=== PATIENT | female | born 1960 | race African-American/Black ===

== ENCOUNTER 2021-03-07 20:33 | Emergency (ER) | payer MEDICARE ==
[~2021-03-07] VITALS: Ht 177.8 cm; Wt 82.7 kg
--- NOTE | 2021-03-07 23:52 | PHYS DOC ---
General Adult EDM: Chief Complaint: COLD EXPOSURE HPI: HPI: Patient is a 60 year old 60-year-old female patient presented to the ED today to be evaluated for Covid exposure. Patient states she was out in the cold for 2 days. Patient states she was seen at [facility] today and her skin to the hands was dry and bleeding and was sent to the ED. Review of Systems: Review of Systems: Constitutional: Denies fever or chills. [] Musculoskeletal: Denies back pain or joint pain. [] Integument: Reports cold exposure with dry bleeding hands Neurologic: Denies headache, focal weakness or sensory changes. [] Psychiatric: Denies depression or anxiety. [] Heart Score: C/O Chest Pain: N/A Risk Factors: Risk Factors: DM, Current or recent (<one month) smoker, HTN, HLP, family history of CAD, obesity. Risk Scores: Score 0 - 3: 2.5% MACE over next 6 weeks - Discharge Home Score 4 - 6: 20.3% MACE over next 6 weeks - Admit for Clinical Observation Score 7 - 10: 72.7% MACE over next 6 weeks - Early Invasive Strategies Physical Exam: PE: Constitutional: Well developed, well nourished, no acute distress, non-toxic appearance. [] Skin: Bilateral hands with very dry skin, left middle finger nailbed is scaly and has trace amount of dried blood, both hands and fingers are warm. Patient is dressed warm. Cap refill to both fingers are<2. +2 bilateral radial pulses. Adequate radial, medial, ulnar sensation to bilateral fingers. Back: No tenderness, no CVA tenderness. [] Extremities: No tenderness, no cyanosis, no clubbing, ROM intact, no edema. [] Neurologic: Alert and oriented X 3, normal motor function, normal sensory function, no focal deficits noted. [] Psychologic: Affect normal, judgement normal, mood normal. [] Current Patient Data: Labs: Laboratory Tests Test 03/07/21 23:30 POC Urine HCG, Qualitative Hcg negative (Negative) EKG: EKG: [] Radiology/Procedures: Radiology/Procedures: [] Course & Med Decision Making: Course & Med Decision Making Pertinent Labs and Imaging studies reviewed. (See chart for details) This is a 60-year-old female patient presenting to the ED today with cold exposure and bilateral hands and fingers dry and bleeding. Patient has been in the ED waiting room for almost 2-1/2 hours. On arrival to her room her fingers are warm. She is just warm. Her skin is dry. I gave her hospital skin barrier and lotion as well as lip balm and was d/c to a motel she states she is supposed to go to after midnight tonight. [place] Disclaimer: [place] Disclaimer: This electronic medical record was generated, in whole or in part, using a voice recognition dictation system. Departure Departure Impression: Primary Impression: Cold exposure Qualified Codes: T69.9XXA - Effect of reduced temperature, unspecified, initial encounter Disposition: HOME / SELF CARE / HOMELESS Condition: STABLE Referrals: NO PCP (PCP) follow up with your doctor in one week Patient Instructions: Hypothermia Prevention Additional Instructions: You were evaluated for Covid exposure. Please try and dress warm and avoid being outside in the cold. Please follow-up with your primary care doctor in 1 week. Use the lotion provided as needed for dry skin. You can also use Vaseline CAREY [employer]ONADO [employer] SUPPORT SPECIALIST Mar 07, 2021 23:52
== END 2021-03-08 00:23 | disposition home or self-care (01) ==
LOC: ER 20:33
DX: T69.9XXA Effect of reduced temperature, unspecified, initial encounter (principal)
CPT/HCPCS: 81025; 99282

== ENCOUNTER 2021-03-15 22:40 | Emergency (ER) | payer MEDICARE ==
[~2021-03-15] VITALS: Ht 177.8 cm; Wt 82.7 kg
[2021-03-15] MEDS ORDERED: METOPROLOL TART IMMED RELEASE 25 MG TABLET. PO ONE (23:30)
[2021-03-15] MEDS ORDERED: CYCLOBENZAPRINE 10 MG TABLET. PO ONE (23:45)
[2021-03-15] MEDS ORDERED: CYCL5TAB PO (23:48)
[2021-03-15] MEDS ORDERED: METO25TA4 PO (23:48)
[2021-03-15] MEDS ORDERED: METH4TAB2 PO (23:48)
--- NOTE | 2021-03-15 23:50 | PHYS DOC ---
Past Medical History Past Surgical History: No Surgical History Smoking Status: Current Every Day Smoker Alcohol Use: Occasionally General Adult EDM: Chief Complaint: BACK PAIN OR INJURY HPI: HPI: Patient is a 60 year old female who presents with back pain after having to walk a long race today and carry heavy bags. She is currently homeless. She st ates that she is having to stay at [facility] but did not make it there today. She states she supposed to be on blood pressure medication but is not taking it. Her blood pressure is 203/114 upon arrival. She rates her back pain a spasm type pain and states it does not radiate. She rates the pain at a 8 out of 10. She states is hard to walk. She denies numbness or tingling, headache, chest pain, shortness of air, dizziness, syncope, fever, cough, nausea, vomiting, abdominal pain, urinary symptoms, vision change, focal weakness. Review of Systems: Review of Systems: Constitutional: Denies fever or chills. [] Eyes: Denies change in visual acuity. [] HENT: Denies nasal congestion or sore throat. [] Respiratory: Denies cough or shortness of breath. [] Cardiovascular: Denies chest pain or edema. [] GI: Denies abdominal pain, nausea, vomiting, bloody stools or diarrhea. [] : Denies dysuria. [] Musculoskeletal: + back pain or denies joint pain. [] Integument: Denies rash. [] Neurologic: Denies headache, focal weakness or sensory changes. [] Endocrine: Denies polyuria or polydipsia. [] Lymphatic: Denies swollen glands. [] Psychiatric: Denies depression or anxiety. [] Heart Score: C/O Chest Pain: No Current Medications: Current Medications Medications (Trade) Dose Ordered Sig/Laura Start Time Stop Time Status Last Admin Dose Admin Metoprolol Tartrate (Lopressor) 25 mg 1X ONCE 03/15/21 23:30 03/15/21 23:31 UNV Allergies: Allergies: Allergies Coded Allergies Type Severity Reaction Last Updated Verified aspirin Allergy Unknown 03/08/21 Yes Physical Exam: PE: Constitutional: Well developed, well nourished, no acute distress, non-toxic appearance. [] HENT: Normocephalic, atraumatic, bilateral external ears normal, oropharynx moist, no oral exudates, nose normal. [] Eyes: PERRLA, EOMI, conjunctiva normal, no discharge. [] Neck: Normal range of motion, no tenderness, supple, no stridor. [] Cardiovascular:Heart rate regular rhythm, no murmur [] Lungs & Thorax: Bilateral breath sounds clear to auscultation [] Abdomen: Bowel sounds normal, soft, no tenderness, no masses, no pulsatile masses. [] Skin: Warm, dry, no erythema, no rash. [] Back: No tenderness, no CVA tenderness. [] Extremities: No tenderness, no cyanosis, no clubbing, ROM intact, no edema. [] Neurologic: Alert and oriented X 3, normal motor function, normal sensory function, no focal deficits noted. [] Psychologic: Affect normal, judgement normal, mood normal. [] Normal physical exam. EKG: EKG: [] Radiology/Procedures: Radiology/Procedures: [] Course & Med Decision Making: Course & Med Decision Making Pertinent Labs and Imaging studies reviewed. (See chart for details) See HPI. Alert and orient x4. Ambulatory with a slow steady gait. Speaks in full complete sentences. She is given metoprolol 25 mg p.o. in the ED. I will write her prescription for that. She states she usually goes to [facility] for her care. She states she does not have a primary care physician and usually receives residents at [facility]. She states a long time ago she was going to a spinal doctor for her bulging disc and compressed nerves in her back. She states she no longer goes there. She states she does not like pain medication because of the way it makes her feel. As patient is felt sitting in the chair she is swinging her legs back and forth. She is able to get out of the wheelchair and sit down on the bed. No saddle paresthesia. Denies loss of bowel bladder. Neurologically intact. Patient states she has been taking Tylenol 650 for her pain. She states she cannot take anything like ibuprofen because she is allergic to aspirin. [] Dragon Disclaimer: Dragon Disclaimer: This electronic medical record was generated, in whole or in part, using a voice recognition dictation system. Departure Departure Impression: Primary Impression: Back pain Qualified Codes: M54.50 - Low back pain, unspecified; G89.29 - Other chronic pain Additional Impression: Hypertension Qualified Codes: I10 - Essential (primary) hypertension Disposition: HOME / SELF CARE / HOMELESS Condition: STABLE Referrals: NO PCP (PCP) Patient Instructions: Back Pain, Adult, Hypertension Additional Instructions: Patient to follow-up with physician for a blood pressure check in 24 hours. Take medication as prescribed and with food if you can. Drink plenty of fluids. If you begin having severe headache, dizziness, numbness or tingling or loss of bowel bladder you need to go to a emergency room. Scripts Methylprednisolone (MEDROL) 4 Mg Tab.ds.pk 1 PKG PO UD, #1 PKG Prov: YAMILKA GONZALES APRN 03/15/21 Cyclobenzaprine Hcl (CYCLOBENZAPRINE HCL) 5 Mg Tablet 1 TAB PO TID, #30 TAB Prov: YAMILKA GONZALES APRN 03/15/21 Metoprolol Tartrate (METOPROLOL TARTRATE) 25 Mg Tablet 25 MG PO BID for FOR HYPERTENSION, #60 TAB 0 Refills Prov: YAMILKA GONZALES APRN 03/15/21 YAMILKA GONZALES APRN Mar 15, 2021 23:49
[2021-03-16 02:00] VITALS: BP 175/98
== END 2021-03-16 02:12 | disposition home or self-care (01) ==
LOC: ER 22:40
DX: M54.50 Low back pain, unspecified (principal); G89.29 Other chronic pain; F17.200 Nicotine dependence, unspecified, uncomplicated; I10 Essential (primary) hypertension; Z59.00 Homelessness unspecified; Z88.6 Allergy status to analgesic agent
CPT/HCPCS: 99283

== ENCOUNTER 2021-03-18 18:46 | Emergency (ER) | payer MEDICARE ==
[~2021-03-18] VITALS: Ht 170.2 cm; Wt 102.0 kg
[~2021-03-18 18:46] MED LIST: CYCL5TAB PO; METH4TAB2 PO; METO25TA4 PO
--- NOTE | 2021-03-18 19:06 | PHYS DOC ---
Past Medical History Past Medical History: Anemia Additional Past Medical Histor: back problems Past Surgical History: No Surgical History Smoking Status: Current Every Day Smoker Alcohol Use: Occasionally General Adult EDM: Chief Complaint: WEAKNESS/GENERALIZED HPI: HPI: Patient is a 60-year-old female that presents today via [facility] with lower leg weakness. Patient states she was at the bus stop and the bus never arrived and when she started moving she said she had some muscle twitching in her leg and she felt weak and leaned against a pole she then states she called 311 to report the bus had not arrived but instead called 911 and was brought to the emergency department. Patient did state that she wished to go to [facility] she did not want to come to [facility]. Patient states she does have a past medical history of lumbar issues and was placed on disability for her back problems. When asked if she had some place to go when she was discharged from the hospital she states she will have to find a ride to someone's house. Patient does report that she was at the [facility] emergency department on and was here at [facility] on Saturday. As noted from her reviewed chart from Saturday patient is homeless. Review of Systems: Review of Systems: Constitutional: Denies fever or chills. [] Eyes: Denies change in visual acuity. [] HENT: Denies nasal congestion or sore throat. [] Respiratory: Denies cough or shortness of breath. [] Cardiovascular: Denies chest pain or edema. [] GI: Denies abdominal pain, nausea, vomiting, bloody stools or diarrhea. [] : urinary urgency Musculoskeletal: Lower extremity weakness Integument: Denies rash. [] Neurologic: Denies headache, focal weakness or sensory changes. [] Endocrine: Denies polyuria or polydipsia. [] Lymphatic: Denies swollen glands. [] Psychiatric: Denies depression or anxiety. [] Heart Score: C/O Chest Pain: N/A Risk Factors: Risk Factors: DM, Current or recent (<one month) smoker, HTN, HLP, family history of CAD, obesity. Risk Scores: Score 0 - 3: 2.5% MACE over next 6 weeks - Discharge Home Score 4 - 6: 20.3% MACE over next 6 weeks - Admit for Clinical Observation Score 7 - 10: 72.7% MACE over next 6 weeks - Early Invasive Strategies Allergies: Allergies: Allergies Coded Allergies Type Severity Reaction Last Updated Verified aspirin Allergy Unknown 03/18/21 Yes Physical Exam: PE: Constitutional: Well developed, well nourished, no acute distress, non-toxic appearance. [] HENT: Normocephalic, atraumatic, bilateral external ears normal, oropharynx moist, no oral exudates, nose normal. [] Eyes: PERRLA, EOMI, conjunctiva normal, no discharge. [] Neck: Normal range of motion, no tenderness, supple, no stridor. [] Cardiovascular:Heart rate regular rhythm, no murmur [] Lungs & Thorax: Bilateral breath sounds clear to auscultation [] Abdomen: Bowel sounds normal, soft, no tenderness, no masses, no pulsatile masses. [] Skin: Warm, dry, no erythema, no rash. [] Back: No tenderness, no CVA tenderness. [] Extremities: No tenderness, no cyanosis, no clubbing, ROM intact, no edema. [] Neurologic: Alert and oriented X 3, normal motor function, normal sensory function, no focal deficits noted. [] Psychologic: Affect normal, judgement normal, mood normal. [] Current Patient Data: Labs: Laboratory Tests Test 03/18/21 19:35 03/18/21 20:55 White Blood Count 6.7 x10^3/uL Red Blood Count 5.31 x10^6/uL Hemoglobin 14.8 g/dL Hematocrit 45.3 % Mean Corpuscular Volume 85 fL Mean Corpuscular Hemoglobin 28 pg Mean Corpuscular Hemoglobin Concent 33 g/dL Red Cell Distribution Width 14.5 % Platelet Count 197 x10^3/uL Neutrophils (%) (Auto) 57 % Lymphocytes (%) (Auto) 31 % Monocytes (%) (Auto) 9 % Eosinophils (%) (Auto) 1 % Basophils (%) (Auto) 2 % Neutrophils # (Auto) 3.8 x10^3/uL Lymphocytes # (Auto) 2.1 x10^3/uL Monocytes # (Auto) 0.6 x10^3/uL Eosinophils # (Auto) 0.1 x10^3/uL Basophils # (Auto) 0.1 x10^3/uL Sodium Level 135 mmol/L Potassium Level 4.0 mmol/L Chloride Level 101 mmol/L Carbon Dioxide Level 27 mmol/L Anion Gap 7 Blood Urea Nitrogen 22 mg/dL Creatinine 1.5 mg/dL Estimated GFR (Cockcroft-Gault) 43.0 Glucose Level 94 mg/dL Calcium Level 10.0 mg/dL Lipase 151 U/L Urine Collection Type Void Urine Color Yellow Urine Clarity Clear Urine pH 6.5 Urine Specific [place] 1.010 Urine Protein Negative mg/dL Urine Glucose (UA) Negative mg/dL Urine Ketones (Stick) Negative mg/dL Urine Blood Negative Urine Nitrite Negative Urine Bilirubin Negative Urine Urobilinogen Dipstick 0.2 mg/dL Urine Leukocyte Esterase Large Urine RBC 0 /HPF Urine WBC 20-40 /HPF Urine Squamous Epithelial Cells Mod /LPF Urine Bacteria 0 /HPF Urine Mucus Slight /LPF Current Medications Medications (Trade) Dose Ordered Sig/Laura Route PRN Reason Start Time Stop Time Status Last Admin Dose Admin Metoprolol Succinate (Toprol Xl) 25 mg 1X ONCE PO 03/18/21 19:15 03/18/21 19:16 DC 03/18/21 19:41 Vital Signs: Vital Signs Date Time Temp Pulse Resp B/P (MAP) Pulse Ox O2 Delivery O2 Flow Rate FiO2 03/18/21 21:00 86 18 178/97 (124) 99 Room Air 03/18/21 20:00 86 18 163/109 (127) 99 Room Air 03/18/21 19:41 82 185/101 03/18/21 19:30 84 18 185/101 (129) 100 Room Air 03/18/21 19:00 97.9 88 18 194/118 (143) 99 Room Air 97.9 03/18/21 18:53 98.4 92 16 175/98 (123) 98 Room Air 98.4 Vital Signs Date Time Temp Pulse Resp B/P (MAP) Pulse Ox O2 Delivery O2 Flow Rate FiO2 03/18/21 18:53 98.4 92 16 175/98 (123) 98 Room Air 98.4 EKG: EKG: [] Radiology/Procedures: Radiology/Procedures: [] Course & Med Decision Making: Course & Med Decision Making Pertinent Labs and Imaging studies reviewed. (See chart for details) 1899 patient was seen in the hallway with and ambulating with a steady gait no signs and symptoms of weakness noted. 2124 reassessment of patient patient was sleeping, blood pressure is 173/82, patient is requesting to sleep in the bed because she has not slept" 5 days", patient was informed that we cannot allow her to take up this room and have other patients that will need this room later on, patient will be provided a list of homeless shelters there is a phone in the waiting room that she can call, patient if she does request to go to a homeless retirement we will provide a cab voucher to that retirement and only to that retirement. Patient states she does have a blood pressure medication prescription from both the [facility] and from [facility], patient was instructed to get that filled to treat her hypertension. Patient verbalizes understanding of the plan of care spoke to person caring for patient in the emergency department and informed of plan of care. Patient was given a list of clinics that she can follow-up with and a list of prime physicians to establish primary care [place] Disclaimer: [place] Disclaimer: This electronic medical record was generated, in whole or in part, using a voice recognition dictation system. Departure Departure Impression: Primary Impression: Weakness Disposition: 01 HOME / SELF CARE / HOMELESS Condition: STABLE Referrals: NO PCP (PCP) Patient Instructions: Weakness, [id number] Additional Instructions: Get prescription filled for blood pressure medication that was given on March 15 and take as labeled directed [employer] Mar 18, 2021 19:06
[2021-03-18] MEDS ORDERED: METOPROLOL SUCC 24HR ER 25 MG TAB.ER.24H. PO ONE (19:15)
[2021-03-18 19:47] LABS: BASO # 0.1 x10^3/uL (0.0-0.2); BASO % 2 % (0-3); EOS # 0.1 x10^3/uL (0.0-0.7); EOS % 1 % (0-3); HEMATOCRIT 45.3 % (36.0-47.0); HEMOGLOBIN 14.8 g/dL (12.0-15.5); LYMPH # 2.1 x10^3/uL (1.0-4.8); LYMPH % 31 % (24-48); MEAN CORPUSCULAR HEMOGLOBIN 28 pg (25-35); MEAN CORPUSCULAR HGB CONC 33 g/dL (31-37); MEAN CORPUSCULAR VOLUME 85 fL (79-100); MONO # 0.6 x10^3/uL (0.0-1.1); MONO % 9 % (0-9); NEUT # 3.8 x10^3/uL (1.8-7.7); NEUT % 57 % (31-73); PLATELET COUNT 197 x10^3/uL (140-400); RED BLOOD COUNT 5.31 x10^6/uL (3.50-5.40); RED CELL DISTRIBUTION WIDTH 14.5 % (11.5-14.5); WHITE BLOOD COUNT 6.7 x10^3/uL (4.0-11.0)
[2021-03-18 19:56] LABS: CREATININE 1.5 mg/dL (0.6-1.0)
[2021-03-18 21:00] VITALS: BP 178/97
[2021-03-18 21:03] LABS: BILIRUBIN,URINE NEGATIVE (NEG); CLARITY,URINE CLEAR; COLOR,URINE YELLOW; NITRITE,URINE NEGATIVE (NEG); PH,URINE 6.5 (<5.0-8.0); PROTEIN,URINE NEGATIVE (NEG-TRACE); UROBILINOGEN,URINE 0.2 mg/dL (0.2 mg/dL)
[2021-03-18 21:09] LABS: BACTERIA,URINE 0 /HPF (0-FEW); RBC,URINE 0 /HPF (0-2); WBC,URINE 20-40 /HPF (0-4)
== END 2021-03-18 21:47 | disposition home or self-care (01) ==
LOC: ER 18:46
DX: R53.1 Weakness (principal); F17.200 Nicotine dependence, unspecified, uncomplicated; Z88.6 Allergy status to analgesic agent
CPT/HCPCS: 36415; 80048; 81001; 83690; 85025; 87086; 87147; 99283

== ENCOUNTER 2021-07-21 12:09 | Emergency (ER) | payer MEDICARE ==
[~2021-07-21] VITALS: Ht 177.8 cm; Wt 87.2 kg
--- NOTE | 2021-07-21 12:36 | PHYS DOC ---
Past Medical History Past Medical History: Anemia Additional Past Medical Histor: back problems (YAMILKA GONZALES ELECTROPLATER) Past Surgical History: No Surgical History (YAMILKA GONZALES ELECTROPLATER) Smoking Status: Current Every Day Smoker Alcohol Use: Occasionally (YAMILKA GONZALES ELECTROPLATER) General Adult HPI: HPI: Patient is a 60 year old female who presents with suicidal ideation by overdosing. She states she does not have the means to actually be able to do it. She states that she had recently gotten out of [facility] after she was placed there due to her getting an altercation with a social service technician over them telling lies. She stated that she was started on new medication that she states is making her anxious and given her suicidal ideation. She states she has never had suicidal ideation before. Patient states that she would like to go back to [facility]. She denies abdominal pain, chest pain, shortness of breath, nausea, vomiting, diarrhea, fever, cough, headache, dizziness, numbness or tingling, focal weakness. (YAMILKA GONZALES ELECTROPLATER) Review of Systems: Review of Systems: Constitutional: Denies fever or chills. [] Eyes: Denies change in visual acuity. [] HENT: Denies nasal congestion or sore throat. [] Respiratory: Denies cough or shortness of breath. [] Cardiovascular: Denies chest pain or edema. [] GI: Denies abdominal pain, nausea, vomiting, bloody stools or diarrhea. [] : Denies dysuria. [] Musculoskeletal: Denies back pain or joint pain. [] Integument: Denies rash. [] Neurologic: Denies headache, focal weakness or sensory changes. [] Endocrine: Denies polyuria or polydipsia. [] Lymphatic: Denies swollen glands. [] Psychiatric: Denies depression or +anxiety. +SI[] (YAMILKA GONZALES ELECTROPLATER) Heart Score: C/O Chest Pain: No (YAMILKA GONZALES ELECTROPLATER) Allergies: Allergies: Allergies Coded Allergies Type Severity Reaction Last Updated Verified aspirin Allergy Intermediate 03/18/21 Yes (YAMILKA GONZALES ELECTROPLATER) Physical Exam: PE: Constitutional: Well developed, well nourished, no acute distress, non-toxic appearance. [] HENT: Normocephalic, atraumatic, bilateral external ears normal, oropharynx moist, no oral exudates, nose normal. [] Eyes: PERRLA, EOMI, conjunctiva normal, no discharge. [] Neck: Normal range of motion, no tenderness, supple, no stridor. [] Cardiovascular:Heart rate regular rhythm, no murmur [] Lungs & Thorax: Bilateral breath sounds clear to auscultation [] Abdomen: Bowel sounds normal, soft, no tenderness, no masses, no pulsatile masses. [] Skin: Warm, dry, no erythema, no rash. [] Back: No tenderness, no CVA tenderness. [] Extremities: No tenderness, no cyanosis, no clubbing, ROM intact, no edema. [] Neurologic: Alert and oriented X 3, normal motor function, normal sensory function, no focal deficits noted. Suicidal Ideation[] Psychologic: Affect normal, judgement normal, mood normal. [] (YAMILKA GONZALES APRN) EKG: EKG: [] (YAMILKA GONZALES APRN) EKG: Sinus rhythm 68 bpm, no axis deviation, normal intervals, T wave inversion lead III, no ST elevation or ST depression, no active chest pain ([facility]) Radiology/Procedures: Radiology/Procedures: [] (YAMILKA GONZALES APRN) Course & Med Decision Making: Course & Med Decision Making Pertinent Labs and Imaging studies reviewed. (See chart for details) See HPI. Alert and oriented x4. Ambulatory with a steady gait. Speaks in full clear sentences. Skin pink warm and dry. She appears disheveled. Patient's urine does look to be infected. Vital signs are within normal limits. Patient is medically cleared. Patient does have a urinary tract infection without any complications. I will give her the first dose of cefdinir here and then she will be sent with a prescription for an antibiotic. Rapid Covid negative. Genna BEAR is here speaking with the patient. We is currently waiting to hear back for approval to [facility]. 1999: Report given to Dr Lazo [] (YAMILKA GONZALES APRN) Course & Med Decision Making Patient was initially seen by the nurse practitioner. I assumed care at 1999 last night. The patient is awaiting inpatient psychiatric hospitalization placement. She has a negative rapid Covid antigen test, but PCR is required for formal placement, this is pending. She has already been treated with oral dose of antibiotics for urinary tract infection. The patient has been calm and cooperative since my assumption of care and throughout the shift and into this morning. The PAT team has already assessed her and will check back on her after 0700 today, for placement. I am transferring care to Dr. Pena at 0600 4 follow-up on PCR testing and for disposition. She is stable at time of transition of care. (TREVOR LAZO DO) Course & Med Decision Making Patient is medically cleared. Is now accepted at [facility]. No acute events during my shift. Keflex prescription prescribed. Patient stable at time of transfer and agrees with this plan. The wound was explored in a bloodless field after irrigation, with full range of motion. No tendon injury or foreign body visualized. Patient had normal strength with no neurological, vascular or muscular injury. (RONNI PENA DO) Dragon Disclaimer: Dragon Disclaimer: This electronic medical record was generated, in whole or in part, using a voice recognition dictation system. (YAMILKA GONZALES APRN) Departure Departure Impression: Primary Impression: Suicidal ideation Additional Impression: UTI (urinary tract infection) Disposition: [facility] (to [facility], accepted by Dr. Kyaw Tobias) Condition: STABLE Referrals: NO PCP (PCP) Patient Instructions: Suicidal Feelings, How to Help Yourself, Urinary Tract Infection Scripts Cephalexin (KEFLEX) 500 Mg Capsule 1 CAP PO QID for 7 Days, #28 CAP Prov: RONNI PENA DO 07/22/21 YAMILKA GONZALES APRN Jul 21, 2021 12:36 TREVOR LAZO DO Jul 22, 2021 05:36 RONNI PENA DO Jul 22, 2021 12:37
[2021-07-21 13:00] LABS: BARBITURATES NEG (NEG); BENZODIAZEPINES NEG (NEG); BILIRUBIN,URINE NEGATIVE (NEG); CANNABINOIDS NEG (NEG); CLARITY,URINE CLEAR; COCAINE NEG (NEG); COLOR,URINE YELLOW; METHADONE NEG (NEG); NITRITE,URINE NEGATIVE (NEG); OPIATES NEG (NEG); PH,URINE 5.5 (<5.0-8.0); PHENCYCLIDINE NEG (NEG); PROTEIN,URINE NEGATIVE (NEG-TRACE); UROBILINOGEN,URINE 0.2 mg/dL (0.2 mg/dL)
[2021-07-21 13:02] LABS: BACTERIA,URINE FEW /HPF (0-FEW); RBC,URINE OCC /HPF (0-2)
[2021-07-21 13:10] LABS: AMPHETAMINE/METHAMPHETAMINE NEG (NEG)
[2021-07-21 13:29] LABS: BASO % 1 % (0-3); EOS % 0 % (0-3); HEMATOCRIT 44.9 % (36.0-47.0); HEMOGLOBIN 14.4 g/dL (12.0-15.5); LYMPH # 1.3 x10^3/uL (1.0-4.8); LYMPH % 19 % (24-48); MEAN CORPUSCULAR HEMOGLOBIN 28 pg (25-35); MEAN CORPUSCULAR HGB CONC 32 g/dL (31-37); MEAN CORPUSCULAR VOLUME 86 fL (79-100); MONO # 0.4 x10^3/uL (0.0-1.1); MONO % 6 % (0-9); NEUT # 4.9 x10^3/uL (1.8-7.7); NEUT % 74 % (31-73); PLATELET COUNT 197 x10^3/uL (140-400); RED BLOOD COUNT 5.21 x10^6/uL (3.50-5.40); RED CELL DISTRIBUTION WIDTH 14.6 % (11.5-14.5); WHITE BLOOD COUNT 6.7 x10^3/uL (4.0-11.0)
[2021-07-21 13:39] LABS: CALCIUM 9.3 mg/dL (8.5-10.1); CREATININE 1.1 mg/dL (0.6-1.0); GFR 61.5; POTASSIUM 3.6 mmol/L (3.5-5.1)
[2021-07-21 13:44] LABS: ACETAMIN < 2 mcg/ml (10-30); ETHANOL < 10 mg/dL (0-10); SALIC 6.2 mg/dL (2.8-20.0)
[2021-07-21] MEDS ORDERED: CEFDINIR 300 MG CAPSULE PO ONE (17:15)
[2021-07-21] MEDS ORDERED: FAMOTIDINE 20 MG TABLET. PO ONE (18:15)
[2021-07-22] MEDS ORDERED: FAMOTIDINE 20 MG TABLET. ONE (08:47)
[2021-07-22 12:28] VITALS: BP 126/72
[2021-07-22] MEDS ORDERED: CEPH500C PO (17:37)
--- NOTE | 2021-07-22 19:06 | EKG ---
[facility] [address] [place] [address] Test Date: 2021-07-23 Test Time: 12:33:35 Pat Name: AGA CASTANEDA Department: Room: Gender: F Global Technical Writer: : 1960 Requested By: RONNI PENA Order Number: [id number] Reading MD: Bharathi Faria Measurements Intervals Menan Rate: 68 P: 52 NE: 162 QRS: 0 QRSD: 82 T: 5 QT: 424 QTc: 451 Interpretive Statements SINUS RHYTHM ATRIAL PREMATURE COMPLEX(ES) LEFT ATRIAL ABNORMALITY LEFTWARD AXIS QRS(T) CONTOUR ABNORMALITY CONSISTENT WITH ANTEROSEPTAL INFARCT AGE UNDETERMINED ABNORMAL ECG RI6.02 No previous ECG available for comparison Electronically Signed On 08-05-2021 22:02:42 CDT by Bharathi Farai
== END 2021-07-22 17:52 | disposition short-term general hospital (02) ==
LOC: ER 12:09
DX: R45.851 Suicidal ideations (principal); Z20.822 Contact with and (suspected) exposure to COVID-19; N39.0 Urinary tract infection, site not specified; F17.200 Nicotine dependence, unspecified, uncomplicated
CPT/HCPCS: 36415; 80048; 80307; 80329; 81001; 85025; 87086; 87426; 93005; 99285; G0480; U0003; 99284

== ENCOUNTER 2021-08-18 12:28 | Emergency (ER) | payer MEDICARE ==
[~2021-08-18] VITALS: Ht 177.8 cm; Wt 85.9 kg
[~2021-08-18 12:28] MED LIST changes: +CEPH500C PO
[2021-08-18 13:28] LABS: BASO # 0.1 x10^3/uL (0.0-0.2); BASO % 1 % (0-3); EOS % 0 % (0-3); HEMATOCRIT 45.5 % (36.0-47.0); HEMOGLOBIN 14.8 g/dL (12.0-15.5); LYMPH # 1.4 x10^3/uL (1.0-4.8); LYMPH % 23 % (24-48); MEAN CORPUSCULAR HEMOGLOBIN 28 pg (25-35); MEAN CORPUSCULAR HGB CONC 33 g/dL (31-37); MEAN CORPUSCULAR VOLUME 87 fL (79-100); MONO # 0.4 x10^3/uL (0.0-1.1); MONO % 7 % (0-9); NEUT # 4.3 x10^3/uL (1.8-7.7); NEUT % 69 % (31-73); PLATELET COUNT 193 x10^3/uL (140-400); RED BLOOD COUNT 5.25 x10^6/uL (3.50-5.40); RED CELL DISTRIBUTION WIDTH 14.9 % (11.5-14.5); WHITE BLOOD COUNT 6.2 x10^3/uL (4.0-11.0)
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
[2021-08-18 13:59] LABS: SALIC 7.5 mg/dL (2.8-20.0)
[2021-08-18 14:00] LABS: ACETAMIN < 2 mcg/ml (10-30); ETHANOL < 10 mg/dL (0-10)
[2021-08-18 14:21] LABS: HYALINE CASTS, URINE FEW /HPF
[2021-08-18 14:22] LABS: AMPHETAMINE/METHAMPHETAMINE NEG (NEG); BACTERIA,URINE 0 /HPF (0-FEW); BARBITURATES NEG (NEG); BENZODIAZEPINES NEG (NEG); CANNABINOIDS POS (NEG); COCAINE NEG (NEG); METHADONE NEG (NEG); OPIATES NEG (NEG); PHENCYCLIDINE NEG (NEG); RBC,URINE OCC /HPF (0-2)
[2021-08-18 14:28] LABS: CALCIUM 9.5 mg/dL (8.5-10.1); CREATININE 1.2 mg/dL (0.6-1.0); GFR 55.6; POTASSIUM 3.8 mmol/L (3.5-5.1)
[2021-08-19 17:05] VITALS: BP 140/88
--- NOTE | 2021-08-21 10:06 | EKG ---
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
== END 2021-08-19 20:15 ==
LOC: ER 12:28
DX: R45.851 Suicidal ideations (principal); F17.200 Nicotine dependence, unspecified, uncomplicated; Z20.822 Contact with and (suspected) exposure to COVID-19; Z88.6 Allergy status to analgesic agent; Z91.011 Allergy to milk products
CPT/HCPCS: 36415; 80048; 80307; 80329; 81001; 85025; 87426; 93005; 99285; G0480; U0003